=== PATIENT | female | born 1950 | race Caucasian/White ===

== ENCOUNTER 2022-06-23 17:12 | Emergency (ER) | payer MEDICARE, BC, SELFPAY ==
[2022-06-23 17:37] VITALS: BP 114/79; PULSE 78; RESP 14; TEMP 36.8; O2SAT 98
--- NOTE | 2022-06-23 17:40 | CRLHL7_ITS ---
For Patients: As a result of the Cures Act, medical imaging exams and procedure reports are released immediately into your electronic medical record. You may view this report before your referring provider. If you have questions, please contact your health care provider. Indication: Contusion Technique: Two views of the left forearm Comparison: None Findings: Bones: Alignment is normal. No fractures or bone lesions. Joint spaces: Unremarkable. Soft tissues: Soft tissue swelling along the anterior aspect of the distal left forearm. Impression: Soft tissue swelling along the anterior aspect of the distal forearm. Dictated by Shelby Madrigal MD @ 06/23/2022 9:09:19 PM (Electronically Signed)
--- NOTE | 2022-06-23 17:41 | ED.UPPEXIN ---
HPI - Extremity Injury (Upper) General Chief Complaint: Extremity Pain/Injury, Upper Stated Complaint: LEFT ARM INJURY - SIGNIFICANT SWELLING Time Seen by Provider: 06/23/22 17:29 History of Present Illness HPI narrative: This 72-year-old female comes in with an injury to her left forearm. She states she was carrying a box who is corner or bumped into the volar aspect of her left forearm. She has a large hematoma in this area. She states that she is on Eliquis for atrial fibrillation. She has normal range of motion of her fingers and wrist joint. Related Data Home Medications Medication Instructions Recorded Confirmed apixaban 5 mg tablet (Eliquis) mg 06/23/22 clonazepam 1 mg tablet mg 06/23/22 ezetimibe 10 mg tablet mg 06/23/22 gabapentin 300 mg capsule mg 06/23/22 metoprolol succinate 25 mg mg PO 06/23/22 tablet,extended release 24 hr venlafaxine 150 mg mg PO 06/23/22 capsule,extended release 24 hr Allergies Allergy/AdvReac Type Severity Reaction Status Date / Time Penicillins Allergy Mild Rash Verified 06/23/22 17:45 doxycycline AdvReac Intermediate Muscle Pain Verified 06/23/22 17:45 sulfas Allergy Unknown Uncoded 06/23/22 17:45 anti-inflammatories AdvReac Mild Muscle Pain Uncoded 06/23/22 17:45 Review of Systems Status of ROS: Reports: 10 or more systems reviewed and unremarkable except as noted in History and below Narrative: Constitutional: No fevers, no weight gain or loss. Eyes: No discharge. No vision changes. HENT: No congestion, no sore throat, no ear pain. Cardiovascular: No chest pain, no palpitations. Respiratory: No shortness of breath, no wheezes, no cough. Gastrointestinal: No abdominal pain, no vomiting, no diarrhea. Genitourinary: No dysuria, no hematuria. Musculoskeletal: Normal range of motion. Large hematoma on the volar aspect of the left distal forearm. Skin: No rashes, no pruritis. Neurological: No dizziness, weakness, sensory change, speech change. Endo/Heme/Allergies: No bruising or bleeding. No polydipsia. Pysch: no suicidality, no anxiety, no insomnia. All other systems reviewed and are negative. [facility] Medical History (Updated 06/23/22 @ 17:48 by Maria D Villegas RN) Atrial fibrillation Depression Hyperlipidemia Restless leg syndrome Surgical History (Updated 06/23/22 @ 17:47 by Maria D Villegas RN) History of cataract surgery History of cholecystectomy History of hysterectomy History of knee replacement Social History Smoking Status: Current every day smoker What tobacco products do you use: cigarettes Do you use any of these nicotine containing products: None Second hand tobacco smoke exposure: Yes How often do you have a drink containing alcohol: monthly or less How many standard drinks containing alcohol do you have on a typical day: 1 or 2 How often do you have six or more drinks on one occasion: Never AUDIT-C Alcohol total score: 1 Non-prescribed substance use: denies use Exam Narrative: Exam Narrative: Constitutional: Well-developed, well-nourished, no acute distress. HEENT: Normocephalic, atraumatic. Neck: Normal range of motion. Nontender. Supple. Heart: Intact distal pulses. Lungs: No chest discomfort. No wheezes, rhonchi, or rales. Abdomen: Nontender. Back: Normal range of motion. Extremities: Normal range of motion. Large hematoma on the volar aspect of the left wrist in the distal portion. Range of motion of the wrist is intact. Skin: Intact. No rash. Warm. No erythema or pallor. Neurologic: No altered sensation. No weakness. Alert and oriented. Psychiatric: No suicidality. No anxiety or depression. No insomnia. Nursing notes and vitals signs are reviewed. Const: Vital Signs, click to edit/add: Vital Signs - 24 hr 06/23/22 17:37 Temperature 98.2 F Pulse Rate [Pulse Oximeter] 78 Respiratory Rate 14 Blood Pressure [Ri ght Upper Arm] 114/79 Pulse Oximetry 98 Course Vital Signs Vital signs: Initial Vital Signs Temperature 98.2 F 06/23/22 17:37 Temperature Source Temporal Artery Scan 06/23/22 17:37 Pulse Rate 78 06/23/22 17:37 Respiratory Rate 14 06/23/22 17:37 Blood Pressure 114/79 06/23/22 17:37 Blood Pressure Mean 90 06/23/22 17:37 Pulse Oximetry 98 06/23/22 17:37 Vital Signs Temperature 98.2 F 06/23/22 17:37 Pulse Rate 78 06/23/22 17:37 Respiratory Rate 14 06/23/22 17:37 Blood Pressure 114/79 06/23/22 17:37 Pulse Oximetry 98 06/23/22 17:37 Temperature 98.2 F 06/23/22 17:37 Pulse Rate 78 06/23/22 17:37 Respiratory Rate 14 06/23/22 17:37 Blood Pressure 114/79 06/23/22 17:37 Pulse Oximetry 98 06/23/22 17:37 MDM - Extremity Injury (Upper) MDM Narrative Medical decision making narrative: This patient comes in with the injury to her left forearm as described above. She is on Eliquis for atrial fibrillation and comes in with an injury to her forearm that resulted in a rather large hematoma. Some ice was applied and it appears that the hematoma is no longer advancing. X-ray images of the left forearm were obtained. There is no sign of bony injury. After ice was applied a Thierno wrap was applied with some compression. The hematoma seems to have stopped advancing. Imaging Data XR L Forearm: My impression: No sign of bony injury. Hematoma is observable. Discharge Plan Discharge Clinical Impression: Contusion of forearm, left Patient Disposition: Home, Self-Care Condition: Stable Instructions: Contusion in Adults (ED) Additional Instructions: Continue medications as prescribed. Wear Thierno wrap for compression. Activity as tolerated. Follow up with MD or return if worsening. Prescriptions: No Action clonazepam 1 mg tablet Label Comments: TAKE 1 TO 1 AND 1/2 TABLETS BY MOUTH AT BEDTIME NEEDED FOR ANXIETY venlafaxine 150 mg capsule,extended release 24hr PO gabapentin 300 mg capsule Label Comments: TAKE 1 CAPSULE BY MOUTH EVERY AFTERNOON AND 3 CAPSULES BY MOUTH EVERY EVENING metoprolol succinate 25 mg tablet extended release 24 hr PO ezetimibe 10 mg tablet Label Comments: TAKE 1 TABLET BY MOUTH DAILY Eliquis 5 mg tablet Stand Alone Forms: My[facility] Info Instructions
--- NOTE | 2022-06-23 18:30 | ED.NURSE ---
Thierno wrapped placed around swelling in left forearm.
== END 2022-06-23 19:28 | disposition home or self-care (01) ==
PROVIDERS: Emergency Provider Emergency Medicine Emergency Medical Services
DX: S50.12XA Contusion of left forearm, initial encounter (principal); W22.8XXA Striking against or struck by other objects, initial encounter
CPT/HCPCS: 73090; 99283; 99284

== ENCOUNTER 2023-04-20 12:58 | Outpatient (CLI) | payer MEDICARE, BC, SELFPAY ==
[2023-04-20 17:06] LABS: Digoxin* 0.9 ng/mL (0.8-2.0)
== END 2023-04-20 12:59 | disposition home or self-care (01) ==
PROVIDERS: PCP Family Medicine
DX: R60.9 Edema, unspecified (principal); I48.0 Paroxysmal atrial fibrillation; I51.7 Cardiomegaly
CPT/HCPCS: 36415; 80162; 93225; 93226; 93306

== ENCOUNTER 2023-09-28 15:21 | Outpatient (CLI) | payer MEDICARE, BC, SELFPAY | END 2023-09-28 15:22 | disposition home or self-care (01) | LOC: RAD 15:23 | PROVIDERS: PCP Family Medicine; Visit Provider Family Medicine | DX: I48.91 Unspecified atrial fibrillation (principal) | CPT/HCPCS: 93225; 93226 ==

== ENCOUNTER 2025-07-24 19:51 | Emergency (ER) | payer MEDICARE, BC, SELFPAY ==
--- OUTSIDE RECORDS SUMMARY | 2025-07-24 19:54 | XMS_ITS | Encounter Summary ---
Author Organization [facility] Address [address], [place] [address] Care Team Providers Care Soft Mud Molder Name Role Phone Gabbie Cuevas MD Primary Care Provider [phone] Encounter Details Date Type Department Care Team (Late st Contact Info) Description 07/08/2013 Consent for Procedure/Treatme nt [facility] INFORMED CONSENT FOR SLEEP/AUDIO/VIDEO Social History Tobacco Use Types Packs/Day Years Used Date Smoking Tobacco: Every Day Cigarettes 1 26 Started: 08/07/1983; Last attempted to quit: 08/07/2009 Smokeless Tobacco: Never Alcohol Use Standard Drinks/Week Comments Yes 0 (1 standard drink = 0.6 oz pur e alcohol) rare Comments No Sex and Gender Information Value Date Recorded Sex Assigned at Not on file Legal Sex Female 4:27 AM CDT Gender Identity Not on file Sexual Orientation Not on file 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
--- OUTSIDE RECORDS SUMMARY | 2025-07-24 19:54 | XMS_ITS | Encounter Summary ---
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
--- OUTSIDE RECORDS SUMMARY | 2025-07-24 19:54 | XMS_ITS | Encounter Summary ---
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
--- OUTSIDE RECORDS SUMMARY | 2025-07-24 19:54 | XMS_ITS | Encounter Summary ---
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
--- OUTSIDE RECORDS SUMMARY | 2025-07-24 19:54 | XMS_ITS | Encounter Summary ---
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
--- OUTSIDE RECORDS SUMMARY | 2025-07-24 19:54 | XMS_ITS | Encounter Summary ---
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
--- OUTSIDE RECORDS SUMMARY | 2025-07-24 19:54 | XMS_ITS | Encounter Summary ---
Author Organization [facility] Address [address], [place] [address] Care Team Providers Care Principal Programmer Name Role Phone Gabbie Cuevas MD Primary Care Provider [phone] Encounter Details Date Type Department Care Team (Late st Contact Info) Description 09/20/2013 Correspondence TMD at [facility] [address] 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
--- OUTSIDE RECORDS SUMMARY | 2025-07-24 19:54 | XMS_ITS | Encounter Summary ---
Author Organization [facility] Address [address], [place] [address] Care Team Providers Care Terrazzo Polisher Name Role Phone Gabbie Cuevas MD Primary Care Provider [phone] Reason for Visit * Reason Comments Refill clonazePAM (KLONOPIN ) 1 MG tablet [Pharmacy Med Name: CLONAZEPAM 1MG TABLETS] Encounter Details Date Type Department Care Team (Late st Contact Info) Description 06/10/2025 Refill [facility] [address] [place] [id number] Reva Hare MD [address] [place] [id number] Refill (clonazePAM (KLONOPIN) 1 MG tablet [Pharmacy Med Name: CLONAZEPAM 1MG TABLETS]) Social History Tobacco Use Types Packs/Day Years Used Date Smoking Tobacco: Every Day Cigarettes 1 53.1 Started: 06/07/1972 Passive Smoke Exposure: Current Smokeless Tobacco: Never Alcohol Use Standard Drinks/Week Comments Yes 0 (1 standard drink = 0.6 oz pur e alcohol) A few drinks a year PHQ-2 Answer Date Recorded PHQ-2 Score 0 03/22/2025 Comments No Sex and Gender Information Value Date Recorded Sex Assigned at Not on file Legal Sex Female 4:27 AM CDT Gender Identity Not on file Sexual Orientation Not on file Occupation Industry Job Start Date Job End Date Not on file Not on file Not on file Not on file documented as of this encounter Nursing Notes * Reva Hare MD - 06/10/2025 3:00 PM CDT Sending to pcp to address tomorrow-ok to wait. * Mega Giles [employer] - 06/10/2025 2:47 PM CDT clonazePAM (KLONOPIN) 1 MG tablet [Pharmacy Med Name: CLONAZEPAM 1MG TABLETS] Medication started: 08/21/2019 Last ordered by REVA HARE: 02/27/2025 (103 days ago) QTY: 120, Refills: 0, Sig: take 1-1.5 tablets (1-1.5 mg) by mouth at bedtime as needed for anxiety. (changed) -> Unable to determine if sig has changed, review required. -> Medication cannot be delegated. -> A qualifying visit was not found within the last 2 years. Last qualifying visit: None (A recent visit (in Family Practice with GABBIE CUEVAS) was found) Next scheduled visit: None [facility] [employer] [facility] Embedded Refills, Reference: [id number], 06/10/2025 2:47:49 PM CDT, Pool: Refill Centralized Services - Primary Care ([id number]) * Mega Giles - 06/10/2025 2:47 PM CDT No Careplan note found by [email or web address] documented in this encounter Plan of Treatment Not on file documented as of this encounter Visit Diagnoses Diagnosis Periodic limb movement disorder documented in this encounter Care Teams Terrazzo Polisher Relationship Specialty Start Date End Date Gabbie Cuevas MD [address] [place] [address] PCP - General Family Practice 05/02/18 documented as of this encounter
--- OUTSIDE RECORDS SUMMARY | 2025-07-24 19:54 | XMS_ITS | Encounter Summary ---
Author Organization [employer] Address [address], [place] [address] Care Team Providers Care Nursing Scheduler Name Role Phone Gabbie Cuevas MD Primary Care Provider [phone] Encounter Details Date Type Department Care Team (Late st Contact Info) Description 06/19/2012 Correspondence None Inactive, Provider DENIAL FOR PAYMENT Social History Tobacco Use Types Packs/Day Years Used Date Smoking Tobacco: Former Cigarettes 0.5 26 1 - 08/07/2009 Smokeless Tobacco: Never Comments:trying to quit agai n Alcohol Use Standard Drinks/Week Comments Yes 0 (1 standard drink = 0.6 oz pur e alcohol) rarely Comments No Sex and Gender Information Value Date Recorded Sex Assigned at Not on file Legal Sex Female 4:27 AM CDT Gender Identity Not on file Sexual Orientation Not on file 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
--- OUTSIDE RECORDS SUMMARY | 2025-07-24 19:54 | XMS_ITS | Encounter Summary ---
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
--- OUTSIDE RECORDS SUMMARY | 2025-07-24 19:54 | XMS_ITS | Encounter Summary ---
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
--- OUTSIDE RECORDS SUMMARY | 2025-07-24 19:55 | XMS_ITS | Encounter Summary ---
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
--- OUTSIDE RECORDS SUMMARY | 2025-07-24 19:55 | XMS_ITS | Clinical Summary ---
Author Organization [facility] Address [address], [place] [address] Care Team Providers Care It Auditor Name Role Phone Gabbie Cuevas MD Primary Care Provider [phone] Source Comments You are receiving this document as you are listed as the primary care provider,follow-up provider, or the patient has been referred to you for consultation.This is in compliance with the Medicare and[facility] Incent[facility],which states Providers who transition their patient to another setting of careor provider of care or refers their patient to another provider of care shouldprovide summary care record for each transition of care or referral. [facility] Allergies Active Allergy Reactions Criticality Noted Date Comments Varenicline Rash 08/09/2008 Ciprofloxacin Other, see comments 06/05/2016 Trouble with tendons Doxycycline Rash,Anaphylaxis High 07/18/2014 trouble breathing, Food Other, see comments 04/24/2013 Walnuts, throat itches and starts to close up Latex Rash 07/18/2014 PN: itching and sweaty hands, rash Meperidine Muscle Aches/Weakness 07/18/2014 PN: opposite effect, increase pain. Some psychologic effects, anxiety Meperidine And Related 10/10/2003 causes pain Metronidazole Rash Medium 02/26/2003 SOB Metronidazole Rash 07/18/2014 Nitrofurantoin Monohydrate Macrocrystals Itching 03/27/2008 Nsaids 07/18/2014 PN: flares fibromyalgia Other Unknown Low 03/22/2025 Pt reacting was sneezing to aloe - hand clinical sales consultant Oxycodone Other, see comments 05/28/2013 Made pain worse Penicillin V Rash 11/18/2004 Penicillins Rash 07/18/2014 Quinine 07/18/2014 PN: unsure reaction, pretty severe Quinine Derivatives Breathing Difficulty Medium 02/26/2003 Almost paralyzed. Called the poison control line d/t fear. Rosuvastatin Myalgias 10/11/2019 Myalgia Sulfa Antibiotics Rash Medium 07/18/2014 SOB, PN: unsure reaction, knows she can't take them Thimerosal Swelling 06/29/2005 Thimerosal (Thiomersal) 07/18/2014 PN: severe reaction in eyes from contact solution with thimerosal Medications acetaminophen (TYLENOL) 500 MG tablet Take 2 Tablets (1,000 mg) by mouth daily at bedtime. 5 Active ascorbic acid (AKA VITAMIN C) 1000 MG tablet Take 1 Tablet (1,000 mg) by mouth daily. 6 Active Vitamin D, Cholecalciferol, 1000 UNITS CAPS 1,000 Units. A ctive Magnesium Citrate 200 MG TABS Take 2 Tablets by mouth daily. 1 Active Chromium Picolinate 200 MCG Take 1 Tablet (200 mcg) by mouth daily. 3 Active nitroglycerin (NITROSTAT) 0.4 MG sublingual tablet One tablet under tongue every 5 minutes as needed for chest pain 25 Tablet 11 3 Active Lysine 1000 MG Uncertain of dose she's taking 3 Active mupirocin (BACTROBAN) 2 % ointment Apply to inside of left ear canal twice daily for 10 days. 15 g 3 Active fluocinolone (DERMOTIC) ear drop oil 5 drops each ear, as needed for itching 20 mL 3 4 Active gabapentin (NEURONTIN) 300 MG capsuleIndicatio ns:Anxiety (HRC),Fibromyalg ia TAKE 1 CAPSULE BY MOUTH IN THE AFTERNOON AND 3 CAPSULES EVERY EVENING 360 Capsule 3 4 Active Additional Information Patient taking differently: TAKE 1 CAPSULE BY MOUTH IN THE AFTERNOON AND 2 CAPSULES EVERY EVENING, Reported on 03/22/2025 apixaban (ELIQUIS) 5 MG tabletIndication s:Paroxysmal atrial fibrillation (HRC) Take 1 Tablet (5 mg) by mouth two times a day. 180 Tablet 3 4 Active digoxin (LANOXIN) 125 MCG tabletIndication s:Paroxysmal atrial fibrillation (HRC) Take 1 Tablet (125 mcg) by mouth daily. 90 Tablet 3 4 Active ezetimibe (ZETIA) 10 MG tabletIndication s:Hypercholester olemia Take 1 Tablet (10 mg) by mouth daily. 90 Tablet 3 4 Active venlafaxine (EFFEXORXR) 75 MG 24 hour release capsuleIndicatio ns:Anxiety (HRC),Depression , major, recurrent, mild (HRC) Take 1 Capsule (75 mg) by mouth daily. In addition to 150 mg capsule daily for total of 225 mg daily 90 Capsule 3 4 Active venlafaxine (EFFEXORXR) 150 MG 24 hour release capsuleIndicatio ns:Anxiety (HRC),Depression , major, recurrent, mild (HRC) Take 1 Capsule (150 mg) by mouth daily. With a 75 mg capsule for total of 225 mg daily 90 Capsule 3 4 Active primidone (MYSOLINE) 50 MG tabletIndication s:Essential Tremor Take 1 Tablet (50 mg) by mouth three times a day. 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 Hypercholesterolemia 11/09/2018 Fibromyalgia 11/03/2018 Anxiety 01/09/2018 Overview (02/28/2025): Uses clonazepam at times for sleep, 120 tablets every three to four months is fine, have low concern for abuse Abnormal cervical Papanicolaou smear 07/05/2017 Overview (07/07/2023): Plan, per consult with Dr. Rosario: repeat cytology only in 12 months (05/2018) From visit on 10/13/18 with : History of abnormal pap tests? Judith Ramírez is a 68 y.o. female P0030 who presents to clinic today for a pap smear. She has a history of GRADY exposure in utero and has been advised to have annual pap smears. She has had a TSH/BSO in 1995 for fibroids and endometriosis. Plan: Pap of vaginal cuff done today and will repeat annually. HPV testing not indicated. 2002,2004,2005 NILM 2006 ASCUS; HPV positive 2006,2007,2008,2010 NILM 2012 LSIL; HPV negative 2017: ASCUS HPV- 2018 ASCUS; Vaginal specimen; no glandular component present. HPV not ordered [address] TO REPEAT PAP 1 YEAR 2020: NILM 2022 ASCUS, neg HPV Plan: Upon review of the literature, screening should continue past 65 until there are 3 or more normal pap smears after 10 years. Given ASCUS/HPV negative, I would recommend a repeat pap in 1 year. Bianca Salcedo MD Pap only 05/2024 Pt has Hx GRADY exposure GRADY exposure in utero 11/15/2014 Colon adenoma 09/12/2014 Overview (09/11/2023): Next colonoscopy 08/2024 with [facility] as large rectal adenoma in 08/2023 requiring colorectal consult Next colonoscopy 12/2024 c [facility], no record on file. Scheduled colonoscopy 12-17-14 with [facility] due to difficult exams. Microhematuria 09/12/2014 Overview (06/03/2016): Intermittent <10/hpf Tobacco abuse 07/24/2014 Depression, major, recurrent, mild 07/24/2014 Overview (06/03/2016): initially moderate TROY (obstructive sleep apnea) 07/30/2013 PCO (posterior capsular opacification), left PVD (posterior vitreous detachment) 09/25/2012 Vitamin D deficiency 10/27/2011 Screening for malignant neoplasm of cervix 06/09 Overview (07/31/2015): Epic Periodic limb movement disorder 12/31/2004 Overview (10/08/2017): CLONAZEPAM 1 mg HS /Restless Leg Syndrome Resolved Problems Problem Noted Date Diagnosed Date Resolved Date CAREPLAN: ANTI-COAGULATION 11/06/2019 0 11/10/2021 Overview (11/10/2021): Per 11/05/21 OV switching to Apixaban/Eliquis. Martina Angela RN/[facility] 11/10/2021 11:08 AM CHADSVASC Score=2 Sunil Garcia RN/[facility] 11/10/2021 Anticoagulation Careplan for Judith Ramírez Diagnoses: Atrial Fib. Therapeutic range: 2 - 3. Warfarin pill strength: 2mg. Initiation date ( AKA date when started on warfarin ): 11/06/2019. Length of treatment: short-term. Comments: transitioning from Eliquis Shelby El RN Restless leg syndrome 07/24/20142016 Hallux valgus, acquired 10/02/201307/2017 Overview (07/31/2015): Epic Pes cavus 10/02/2013 10/08/2017 Acquired hallux valgus 10/02/201312/05 Fibroadenoma 08/15/2008 12/05/2016 Overview (06/22/2017): dx on biopsy 2006 ; L breast fibroadenoma Incomplete bladder emptying 04/09/2008 05/18/2012 Obsessive-compulsive disorder 12/15/2007 06/09/2023 Cervical cancer screening 06/09/2006 Posterior subcapsular polar senile cataract 11/10/2005 03/03/2010 Overview (06/22/2017): POST SUBCAP SENILE CATAR OS Lens replaced 10/15/2005 10/08/2017 Overview (06/22/2017): PSEUDOPHAKIA OD (10/14/05) OS 2/10 Posterior subcapsular polar senile cataract 07/20/2005 10/15/2005 Overview (06/22/2017): POST SUBCAP SENILE CATARACT OD Sleep apnea 06/08/2005 07/30/2013 Overview (06/22/2017): Other and unspecified sleep apnea Personal history of tobacco use, presenting hazards to health 12/31/2004 12/05/2016 Major depressive disorder, r ecurrent episode, moderate 03/28/2003 10/08/2017 Overview (06/22/2017): MAJOR DEPRESSIVE D/O, RECURR, MODERATE(aka DEPRESSION) Tobacco use disorder 08/30/2002 023 Encounters Date Type Department Care Team Description 06/10/[address] [address] Arlen Hare MD Refill (clonazePAM (KLONOPIN) 1 MG tablet [Pharmacy Med Name: CLONAZEPAM 1MG TABLETS]) from Last 3 Months Immunizations Immunization Administration Dates Next Due Flu Vac Preserv Free (3+yrs) 07/21/2009 Fluzone Qiv Multidose Vial 0 .25 (6-35 Mos) 08/27/2013 Influenza IIV3 (Trivalent) F luzone Highdose, 65+ Yrs (05052) 11/09/2019 Influenza IIV4 (Quadrivalent ) 0.5mL (86725) 07/18/2014,08/27/2013 Influenza IIV4 (Quadrivalent ) Fluad, 65+ Yrs 08/18/2023 PCV13 (Prevnar) 11/03/2018 PPSV23 (Pneumovax) 11/09/2019,04/24/2010 TDAP (BOOSTRIX) 05/11/2012 Td 03/17/2005,10/30/1995,03/03/1993 Tdap 05/18/2012 Varicella 01/25/2000(Deferred: Immune by Disease),10/31/1999 Family History Medical History Relation Name Comments Cataract Father Jason Ramírez Dementia Father Jason Ramírez lewey Body disease Diabetes Father Jason Ramírez Diabetes, Type II Father Jason Ramírez Other Father Jason Ramírez cardiac arr hythmia Stroke Father Jason Ramírez also had le wy body disease Cataract Mother Diya Ramírez Glaucoma Mother Diya Ramírez Hearing Loss Mother Diya Ramírez Heart Disease Mother Diya Ramírez Congesti ve Heart Failure Neuropathy Mother Diya Ramírez Osteoporosis Mother Diya Ramírez possible Other Mother Diya Ramírez congestiv e heart failure myopathy Mother Diya Ramírez unclear t ype but wheelchair bound for many years Arrhythmia Brother 1 Pat Atrial Fib Brother 1 Pat Neuropathy Brother 1 Pat myopathy Brother 1 Pat severe, gradual ly worsening, difficulty walking Atrial Fib Brother 2 Jayden pancreatitis Brother 3 possibly relate d to chantix Cancer, Breast Cousin 50's Cancer, Breast Paternal Aunt 70's Amblyopia/Strabismus Sister 1 Selena Jairon Cataract Sister 1 Selena Jairon Macular Degeneration Sister 1 Selena Ossian Thyroid Disorder Sister 1 Selena Ossian myopathy Sister 2 Jackie polymyalgia rheumatica Sister 2 Jackie Cancer, Endometrial Negative Family History Cancer, Ovary Negative Family History Retinal Detachment Negative Family History Relation Name Status Comments Father Jason Ramírez (Age 76) Mother Diya Ramírez Alive b 1927 Brother 1 Pat Alive Brother 2 Jayden Alive Brother 3 Cousin Maternal Grandfather Maternal Grandmother Paternal Aunt Paternal Grandfather Paternal Grandmother Sister 1 Selena Jairon Alive Sister 2 Jackie Alive Social History Tobacco Use Types Packs/Day Years Used Date Smoking Tobacco: Every Day Cigarettes 1 53.1 Started: 06/07/1972 Passive Smoke Exposure: Current Smokeless Tobacco: Never Tobacco Cessation:Ready to Q uit: Not Asked; Counseling Given: Not Answered Alcohol Use Standard Drinks/Week Comments Yes 0 [...] file Not on file Not on file Last Filed Vital Signs Vital Sign Reading Time Taken Comments Blood Pressure 118/72 03/22/2025 2:19 PM CDT Pulse 57 03/22/2025 2:19 PM CDT Temperature 36.3 C (97.3 F) 03/22/2025 2:19 PM CDT Respiratory Rate 16 11/21/2023 7:15 PM STONEWORKER Oxygen Saturation 98% 11/21/2023 7:15 PM STONEWORKER Inhaled Oxygen Concentration - - Weight 61.5 kg (135 lb 9.6 oz) 03/22/2025 2:19 P M CDT Height 172.7 cm (5' 8) 03/22/2025 2:19 PM CDT Body Mass Index 20.62 03/22/2025 2:19 PM CDT Plan of Treatment Health Maintenance Due Date Last Done Comments Pneumococcal PCV20 Immunization Discussion 1950 Zoster/Shingles Vaccine (1 of 2) 2001 Lung Cancer Screening 12/25/2021 12/25/2020, 019 DTaP/Tdap/Td Vaccine (3 - Tdap) 05/18/2022 05/18/2012, 05/11/2012, 03/17/2005, Additional history exists Mammogram 03/08/2024 03/08/2023, 12/01, 11/12/2020, Additional history exists Cervical Cancer Screening 06/09/20242022, 06/09/2023, 11/12/2020, Additional history exists COVID-19 Vaccine ( season) 2025 Influenza Vaccine (#1) 2025 , 11/09/2019, 07/18/2014, Additional history exists Prediabetes: HGBA1C 07/12/2025 07/12/2024, 03/08/2023, 11/05/2021, Additional history exists Medicare Annual Wellness Visit 03/22/2026 03/22/2025, 08/18/2023, 04/22/2022, Additional history exists RSV Vaccine (1 - 1-dose 75+ series) 2026 Cholesterol 03/08/2028 03/08/2023, 03/2022, 12/25/2020, Additional history exists Colonoscopy 09/01/2028 09/01/2023, 03/2020 (Completed), 12/17/2014, Additional history exists Hep C Screening (Preventive Services) Completed 11/03/2018 Dexa Completed 01/30/2019, 06/02, 06/29/2007, Additional history exists Pneumococcal Vaccine 50+ Yrs Completed 07/2020, 11/03/2018, 04/24/2010, Additional history exists HepA Vaccine Aged Out No longer eligi ble based on patient's age to complete this topic HepB Vaccine Aged Out No longer eligi ble based on patient's age to complete this topic Hib Vaccine Aged Out No longer eligi ble based on patient's age to complete this topic MCV4 Vaccine Aged Out No longer eligi ble based on patient's age to complete this topic Meningococcal B Vaccine Aged Out No l onger eligible based on patient's age to complete this topic Medical Devices Implanted Type Area Snack Bar Cashier Device Identifier Shelf Expiration Date Model / Serial / Lot Patch Ventralex Sm [place] - [id number] Implanted:Qty: 1 on 04/24/2013 by Steve Batista MD at [facility] DEVICE N/A: ABDOMEN C R Bard 05/31/2014 [id number] / [id number] / [id number] Procedures Procedure Name Priority Date/Time Associated Diagnosis Comments HGB A1C Routine 07/12/2024 3:47 PM CDT Pre-diabetes ENDOSCOPY, COLON, SCREENING/DIAGNOST IC Routine 09/01/2023 3:30 PM CDT Special screening for malignant neoplasms, colon HPV WITH 16 18 GENOTYPING, CERVICAL/ENDOCERVI PRAFUL Routine 06/09/2023 4:15 PM CDT Special screening examination for human papillomavirus (HPV) LIPID PANEL & DIRECT LDL (IF NEEDED) Routine 03/08/2023 4:11 PM CDT Medication refill MM MAMMOGRAM SCREENING BILAT W 3D CAPO W CAD Routine 03/08/2023 1:[address] CHEST WO IV CONT LUNG SCREENING Routine 12/25/2020 1:53 PM STONEWORKER Cigarette smoker DXA BONE DENSITY SPINE/HIP Routine 01/30/2019 1:22 PM CDT Screening for osteoporosis HEPATITIS C ANTIBODY, WITH REFLEX (ANTI-HCV) Routine 11/03/2018 1:56 PM STONEWORKER Encounter for Medicare annual wellness exam from Last 3 Months or Most Recently Relevant to Health Maintenance Results * (ABNORMAL) Hgb A1C (07/12/2024 3:47 PM CDT) Hemoglobin A1C 5.9(H) <=5.6 % 07/12/2024 7:54 PM CDT [facility] Estimated Average Glucose (Calc) 123 < 117 mg/dL 07/12/2024 7:54 PM CDT [facility] Comment:Estimated average gl ucose (eAG) converts A1c into glucose units (mg/dL) and estimates average glucose over the past approximately 3 months. The eAG reference interval (<117 mg/dL) corresponds to an A1c of <5.7%. Blood Venipuncture / Unknown 07/12/2024 3:47 PM CDT 07/12/2024 3:48 PM CDT Narrative [facility] - 07/12/2024 7:54 PM CDT For patients not previously diagnosed with diabetes: 5.7-6.4%: Increased risk for diabetes 6.5% and greater: Diagnostic for diabetes For patients diagnosed with diabetes: <8.0%: Goal of therapy for ages 18-75 Clinicians may recommend a higher or lower goal for specific individuals. us Gabbie Cuevas MD LAB_1 Final Resul t [facility] [address] [address] * Endoscopy, colon, diagnostic (09/01/2023 3:30 PM CDT) Anatomical Region Laterality Modality Other 09/01/2023 3:30 PM CDT Narrative 09/01/2023 3:30 PM CDT Patient Name: Judith Ramírez Procedure Date: 09/01/2023 3:30 PM Date of : 1950 Admit Type: Outpatient Age: 73 Gender: Female Note Status: Finalized Attending MD: Rui Mccormick MD, Procedure: Colonoscopy Indications: High risk colon cancer surveillance: Personal history of colonic polyps, Last colonoscopy: December 2019 Providers: Rui Mccormick MD, Laura Sanchez RN Referring MD: Ava Tucker MD Medicines: Propofol per Anesthesia Complications: No immediate complications. Estimated blood loss: Minimal. Procedure: After I obtained informed consent, the scope was passed under direct vision. Throughout the procedure, the patient's blood pressure, pulse, and oxygen saturations were monitored continuously. The [id number] was introduced through the anus and advanced to the cecum, identified by appendiceal orifice and ileocecal valve. The colonoscopy was performed without difficulty. The patient tolerated the procedure well. The quality of the bowel preparation was good. The appendiceal orifice was photographed. Findings: The perianal and digital rectal examinations were normal. A 4 mm polyp was found in the ascending colon. The polyp was sessile. The polyp was removed with a cold snare. Resection and retrieval were complete. A 5 mm polyp was found in the distal rectum. The polyp was sessile. Biopsies were taken with a cold forceps for histology. Estimated blood loss was minimal. A diffuse area of moderately nodular mucosa was found in the distal rectum. Biopsies were taken with a cold forceps for histology. Estimated blood loss was minimal. Impression: - One 4 mm polyp in the ascending colon, removed with a cold snare. Resected and retrieved. - One 5 mm polyp in the distal rectum. Biopsied. - Nodular mucosa in the distal rectum. Biopsied. Recommendation: - Await pathology results. Procedure Code(s): --- Professional --- 66716, Colonoscopy, flexible; with removal of tumor(s), polyp(s), or other lesion(s) by snare technique 05036, 59, Colonoscopy, flexible; with biopsy, single or multiple Diagnosis Code(s): --- Professional --- Z86.010, Personal history of colonic polyps D12.2, Benign neoplasm of ascending colon D12.8, Benign neoplasm of rectum K62.89, Other specified diseases of anus and rectum CPT copyright 2021 [employer]. All rights reserved. The codes documented in this report are preliminary and upon sectional belt mold assembler review may be revised to meet current compliance requirements. Rui Mccormick MD 09/01/2023 4:35:52 PM This document has been electronically signed. Number of Addenda: 0 Note Initiated On: 09/01/2023 3:30 PM Endoscopy Report Procedure Note Rui Mccormick MD - 09/01/2023 Patient Name: Judith Ramírez Procedure Date: 09/01/2023 3:30 PM Date of : 1950 Admit Type: Outpatient Age: 73 Gender: Female Note Status: Finalized Attending MD: Rui Mccormick MD, Procedure: Colonoscopy Indications: High risk colon cancer surveillance: Personal history of colonic polyps, Last colonoscopy: December 2019 Providers: Rui Mccormick MD, Laura Sanchez RN Referring MD: Ava Tucker MD Medicines: Propofol per Anesthesia Complications: No immediate complications. Estimated blood loss: Minimal. Procedure: After I obtained informed consent, the scope was passed under direct vision. Throughout the procedure, the patient's blood pressure, pulse, and oxygen saturations were monitored continuously. The [id number] was introduced through the anus and advanced to the cecum, identified by appendiceal orifice and ileocecal valve. The colonoscopy was performed without difficulty. The patient tolerated the procedure well. The quality of the bowel preparation was good. The appendiceal orifice was photographed. Findings: The perianal and digital rectal examinations were normal. A 4 mm polyp was found in the ascending colon. The polyp was sessile. The polyp was removed with a cold snare. Resection and retrieval were complete. A 5 mm polyp was found in the distal rectum. The polyp was sessile. Biopsies were taken with a cold forceps for histology. Estimated blood loss was minimal. A diffuse area of moderately nodular mucosa was found in the distal rectum. Biopsies were taken with a cold forceps for histology. Estimated blood loss was minimal. Impression: - One 4 mm polyp in the ascending colon, removed with a cold snare. Resected and retrieved. - One 5 mm polyp in the distal rectum. Biopsied. - Nodular mucosa in the distal rectum. Biopsied. Recommendation: - Await pathology results. Procedure Code(s): --- Professional --- 76800, Colonoscopy, flexible; with removal of tumor(s), polyp(s), or other lesion(s) by snare technique 78325, 59, Colonoscopy, flexible; with biopsy, single or multiple Diagnosis Code(s): --- Professional --- Z86.010, Personal history of colonic polyps D12.2, Benign neoplasm of ascending colon D12.8, Benign neoplasm of rectum K62.89, Other specified diseases of anus and rectum CPT copyright 2021 [employer]. All rights reserved. The codes documented in this report are preliminary and upon sectional belt mold assembler review may be revised to meet current compliance requirements. Rui Mccormick MD 09/01/2023 4:35:52 PM This document has been electronically signed. Number of Addenda: 0 Note Initiated On: 09/01/2023 3:30 PM Endoscopy Report Gabbie Cuevas MD [facility] PROCEDURE ORDERABLES Final Result * HPV with 16 18 Genotyping (06/09/2023 4:15 PM CDT) HPV High Risk Type 16 PCR Not Detected Not detected 06/23/2023 11:26 AM [facility] HPV High Risk Type 18 PCR Not Detected Not Detected 06/23/2023 11:26 AM [facility] HPV High Risk Other Than 16/18 Not Detected Not detected 06/23/2023 11:26 AM [facility] Cervical Broom ENTIRE ENDOCERVIX / Unknown 06/09/2023 4:15 PM CDT 06/09/2023 5:03 PM CDT [facility] - 06/23/2023 11:26 AM CDT The [facility] HPV test is a qualitative in vitro test for the detection of Human Papillomavirus in [facility] patient specimens. The test utilizes amplification of target DNA by Polymerase Chain Reaction (PCR) and nucleic acid hybridization for the detection of 14 high-risk (HR) HPV types. The assay tests for high risk types (16, 18, 31, 33, 35, 39, 45, 51, 52, 56, 58, 59, 66, and 68). us Bianca Salcedo MD LAB_1 Final Resul t Performing Organization Address City/[facility]/ZIP Co de Phone Number [address] [address], [facility] [phone] * (ABNORMAL) Lipid Panel and Direct LDL (If Needed) (03/08/2023 4:11 PM CDT) Cholesterol 215(H) 0 - 199 mg/dL 03/08/2023 7:14 PM CDT [facility] Triglyceride 71 <=149 mg/dL 03/08/2023 7:14 PM CDT [facility] HDL Cholesterol 55 >=40 mg/dL 03/08/2023 7:14 PM CDT [facility] LDL, Calculated 146(H) <130 mg/dL 03/08/2023 7:14 PM CDT [facility] Non HDL Chol, Calculated 160(H) <=159 mg/dL 03/08/2023 7:14 PM CDT [facility] Cholesterol/HDL Ratio 3.9 03/08/2023 7:14 PM CDT [facility] Hours Fasting 12 03/08/2023 7:14 PM CDT [facility] () Blood Venipuncture / Unknown 03/08/2023 4:11 PM CDT 03/08/2023 4:11 PM CDT us Jason Chan MD LAB_1 Final Result [facility] [address] [place] [id number], [facility] [phone] [facility]) [address] [place] [address], [facility] [phone] * MM Mammogram Screening Bilat W 3D Capo W CAD (03/08/2023 1:53 PM CDT) Anatomical Region Laterality Modality Breast Bilateral Mammography Impressions 03/08/2023 3:06 PM CDT : ACR BI-RADS Category 1: Negative RECOMMENDATION: Follow Up Imaging in 12 months - Bilateral The results and recommendations of this examination will be communicated to the patient. Narrative 03/08/2023 3:06 PM CDT [facility] SCREENING BILAT W 3D CAPO W CAD performed on 03/08/23 Compared to: 12/10/2021 MM Mammogram Screening Bilat W 3D Capo W CAD, 11/12/2020 MM Mammogram Screening Bilat W 3D Capo W CAD, and 10/13/2018 MM Mammogram Screening Bilat W 3D Capo W CAD FINDINGS: Bilateral screening mammogram was performed with the assistance of Computer-Aided Detection and breast tomosynthesis. The breasts have scattered areas of fibroglandular density. There is no radiographic evidence of malignancy. Gabbie Cuevas MD RAD ARELY Final Resul t * CT Chest WO IV Cont Lung Screening (12/25/2020 1:53 PM STONEWORKER) Anatomical Region Laterality Modality Chest, Lung Computed Tomogra phy 12/25/2020 1:44 PM STONEWORKER Impressions 12/25/2020 2:48 PM STONEWORKER COMPARISON: 01/30/2019 TECHNIQUE: Images through the chest were obtained without contrast using a low dose lung screening technique. FINDINGS: Lungs appear hyperinflated. Bilateral apical pleural-parenchymal scarring and pleural thickening, right greater than left, is not significantly changed. Small stable areas of scarring at the lung bases are present. There are a few scattered calcified granulomas in the lungs. No focal lung infiltrate or pleural effusion. No lymphadenopathy. Moderate coronary artery calcification. Or other abnormality IMPRESSION: Stable bilateral apical and basilar areas of pleural parenchymal scarring. Scattered tiny calcified granulomas. ACR Lung-RADS Category 2: Benign appearance or behavior. Nodules with a very low likelihood of becoming a clinically active cancer due to size or lack of growth. Continue annual screening with low-dose chest CT in 12 months. 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 Gender: female Height :5' 8.2 Weight (lbs):130.4 lbs Race: Medical/Surgical History Menstrual periods:None Age of menopause:43 History of hip fractures in parents:No History of previous fractures occurring spontaneously, or a fracture as a result of a fall from a standing height or less:No If yes, indicated area: Glucocorticoids use:No Currently taking medication:None Have or had listed medical conditions:Premature menopause (<45 years) Dietary/Habit Alcohol 3units or more per day (on average):No Currently smoking:No Other pertinent history: Dual-X-ray Absorptiometry (DXA Results) AP spine (L1-L3 only, L4 was exlcuded) Left hip (neck) Left hip (total) Left forearm (1/3) BMD (gm/cm2) 0.768 0.734 0.764 T score -2.3 -1.0 -1.5 Z score -0.4 0.6 -0.1 %change from previous scan dated: N/A FRAX Score: 10 YR Risk Hip Fracture % 1.1% Typical threshold to start therapy in patients is a 10-year risk of hip fracture >3%. Clinician s judgment and/or patient preferences may indicate treatment for people with 10-year fracture probabilities above or below these levels. 10 YR Risk Major Osteoporotic Fracture % 7.3% Typical threshold to start therapy in patients is a 10-year risk of any osteoporotic fracture >20%.Clinicians judgment and/or patient preferences may indicate treatment for people with 10-year fracture probabilities above or below these levels. Diagnosis: *Osteopenia of left hip and spine Recommendations:. *Ensure appropriate calcium and vitamin D intake. *Use the FRAX score (above) and clinical judgment to guide further therapy. Comments: *Degenerative joint disease, compression fractures, or calcification artifacts may falsely increase bone mineral density. *Curvature of spine noted, which may cause inaccurate BMD values. *A discrepancy in T score is noted in the lumbar spine. (L4 excluded from analysis). DXA Scan Follow-up When do you repeat a DXA scan? This depends on a number of factors, including baseline DXA scan results and risk factors for accelerated bone loss. Timing of follow up scan should be individualized. These are general recommendations, but if a patient has significant risk factors for accelerated bone loss that are not noted on the DXA report, more aggressive follow up should be pursued 1. In women and men with low bone mass (T-score -2.00 to -2.49) at any site or who have risk factors for ongoing bone loss (eg, glucocorticoid use, hyperparathyroidism, aromatase inhibitors, etc.), consider a follow-up DXA approximately every one to two years as long as the risk factor persists 2. In women 65 years of age and older at baseline screening, with low bone mass (T-score -1.50 to -1.99) at any site, and with no risk factors for accelerated bone loss, consider a follow-up DXA in three to five years. For women under 65 years old and men, there is no consensus recommendation due to the paucity of data. 3. In women 65 years of age and older with normal or slightly low bone mass (T-score -1.01 to -1.49) at baseline measurement and no risk factors for accelerated bone loss, consider a follow-up DXA in 10 to 15 years. For women under 65 years old and men, there is no consensus recommendation due to the paucity of data. 4. In patients with osteoporosis or who s FRAX score suggests treatment should be initiated, consider a follow-up DXA in one to two years. 5. In patients who are currently on treatment for low bone mass, consider repeating DXA scan one to two years after initiating treatment and possibly less frequently thereafter. There are no recommendations for men <50 years old, or premenopausal women. The FRAX tool has been developed by WHO to evaluate fracture risk to patients. It is based on individual patient models that integrate the risks associated with clinical risk factors as well as bone mineral density (BMD) at the femoral neck. The FRAX algorithms give the 10-year probability of fracture. The output is a 10-year probability of hip fracture and the 10-year probability of a major osteoporotic fracture (clinical spine, forearm, hip or shoulder fracture). Consider FDA-approved medical therapies in postmenopausal women and men aged 50 years and older, based on the following: A hip or vertebral (clinical or morphometric) fracture. T-score ? -2.5 at the femoral neck or spine after appropriate evaluation to exclude secondary causes. Low bone mass(T-score -1.0 and -2.5 at the femoral neck or spine) and a 10-year probability of a hip fracture ? 3% or a 10-year probability of a major osteoporosis-related fracture ? 20% based on the [place]-adapted WHO algorithm. Clinicians judgment and/or patient preferences may indicate treatment for people with 10-year fracture probabilities above or below these levels. Gabbie Cuevas MD RAD DEXA Final Resul t * Hepatitis C Antibody, with Reflex (11/03/2018 1:56 PM STONEWORKER) Anti-HCV Negative (Non Reactive) [facility] Comment: Antibodies to HCV not detected. Does not exclude the possibility of exposure to HCV. 11/03/2018 1:56 PM STONEWORKER 11/03/2018 2:14 PM STONEWORKER Narrative [facility] - 11/03/2018 7:10 PM STONEWORKER Performed at [facility], [address] [place] [address] Gabbie Cuevas MD LAB_1 Final Resul t [place] [phone] from Last 3 Months or Most Recently Relevant to Health Maintenance Insurance MEDICARE MANAGED CARE BS [facility] [place] BL[place] MEDICARE MANAGED CARE [facility] [place] Advance Directives * Full Code (Latest Code Status on File) Date Activated Date Inactivated Comments 11/21/2023 5:39 PM 11/21/2023 9:49 PM * Full Code Date Activated Date Inactivated Comments 04/23/2013 9:54 PM 04/25/2013 4:43 PM * Full Code Date Activated Date Inactivated Comments 03/19/2008 3:30 PM 03/20/2008 6:38 PM Care Teams It Auditor Relationship Specialty Start Date End Date Gabbie Cuevas MD [address] [place] [address] PCP - General Family Practice 05/02/18
--- OUTSIDE RECORDS SUMMARY | 2025-07-24 19:55 | XMS_ITS | Encounter Summary ---
Author Organization [facility] Address [address], [place] [address] Care Team Providers Care Cartographic Technician Name Role Phone Gabbie Cuevas MD Primary Care Provider [phone] Encounter Details Date Type Department Care Team (Late st Contact Info) Description 03/14/2008 Correspondence None Inactive, Provider DME SIGNATURE OF DELIVERY Social History Tobacco Use Types Packs/Day Years Used Date Smoking Tobacco: Every Day Cigarettes 0.5 26 Alcohol Use Standard Drinks/Week Comments Yes 0 (1 standard drink = 0.6 oz pur e alcohol) rarely Comments No Sex and Gender Information Value Date Recorded Sex Assigned at Not on file Legal Sex Female 4:27 AM CDT Gender Identity Not on file Sexual Orientation Not on file 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
--- OUTSIDE RECORDS SUMMARY | 2025-07-24 19:55 | XMS_ITS | Encounter Summary ---
Author Organization [employer] Address [address] [place] [address] Care Team Providers Care Research Manager Name Role Phone Gabbie Cuevas MD Primary Care Provider [phone] Encounter Details Date Type Department Care Team (Latest Contact Info) Description 12/24/1999 Office Visit Teetee Nolan MD [address] [place] [address] Social History Tobacco Use Types Packs/Day Years Used Date Smoking Tobacco: Never Assessed Comments Unknown Sex and Gender Information Value Date Recorded Sex Assigned at Not on file Legal Sex Female 4:27 AM CDT Gender Identity Not on file Sexual Orientation Not on file documented as of this encounter Progress Notes * Teetee Nolan - 12/24/1999 12:00 AM CSTS: Judith is a 49-year old woman who smokes cigarettes but is interested in quitting and comes to clinic on December for a physical examination and pap smear. She has several questions today. She notes that will occasionally have what she describes as chest tightness . It is not associated with shortness of breath, diaphoresis, neck, arm or jaw pain. She denies any lightheadedness or fatigue with it. She cannot establish any particular pattern and states that it is fleeting in character. She would also like to review her TSH level which was drawn at her last visit on the December 18. She notes that her tetanus shot is due and she states that she has a history of high cholesterol which she would like to have checked today. Further review of systems, previous medical history and family history are reviewed. Please see the chart for further information. O: HEENT exam is within normal limits. The chest is clear to auscultation bilaterally without rales or wheezes. Cardiac exam finds a regular rate and rhythm without murmur, rub or gallop. Pulses are equal and of normal quality at the radial location. Abdomen is soft, nondistended, nontender. Bowel sounds are present. There is no hepatosplenomegaly or masses. Exam is compromised by mild obesity. Genitourinary exam finds a normal external perineum. There is mild to moderate amount of fluid in the vaginal vault that is white in coloration and without associated odor. A wet prep is sent. Pap smear is sent and is pending. The wet prep did come back negative today. Skin examination finds no new rash or lesions. Musculoskeletal exam is within normal limits. Her TSH level from the 18th was within normal limits. A cholesterol level is drawn today and is pending. A/P: In good overall health. She still has the discomfort in the neck that we discussed earlier and so I did refer her to ENT for further evaluation. I did discuss with Judith routine health maintenance cares and she will follow up in clinic if she has other questions or concerns. IN SUMMARY: PHYSICAL EXAM AND PAP SMEAR . cc: documented in this encounter Plan of Treatment Not on file documented as of this encounter Visit Diagnoses Not on filedocumented in this encounter Care Teams Research Manager Relationship Specialty Start Date End Date Gabbie Cuevas MD [address] [place] [address] PCP - General Family Practice 05/02/18 documented as of this encounter
--- OUTSIDE RECORDS SUMMARY | 2025-07-24 19:55 | XMS_ITS | Encounter Summary ---
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
--- OUTSIDE RECORDS SUMMARY | 2025-07-24 19:55 | XMS_ITS | Encounter Summary ---
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
--- OUTSIDE RECORDS SUMMARY | 2025-07-24 19:55 | XMS_ITS | Clinical Summary ---
Author Organization [facility] Address [address] [place] [address] Care Team Providers Care Garbage Pick Up Worker Name Role Phone Gabbie Cuevas Flor[place] Primary Care Provider [phone] Allergies Active Allergy Reactions Criticality Noted Date Comments Meperidine 12/15/2007 Doxycycline 12/15/2007 Nitroimidazoles 12/15/2007 Latex 12/02/2009 Metronidazole Hcl 12/02/2009 Nitrofurantoin 12/02/2009 Penicillins 12/02/2009 Quinine 12/15/2007 Sulfa (Sulfonamide Antibiotics) 12/2009 Thimerosal 12/15/2007 Varenicline 12/02/2009 Chantix Medications LEXAPRO 20 MG TAB take 1 tablet (20 mg) by oral route once daily 30 11 8 Active KLONOPIN 1 MG TAB One-to-two po qhs 60 5 9 Active aspirin chewable 81 mg chewable tablet Take 81 mg by mouth once daily with a meal. Active CALCIUM CARBONATE/VITAM IN D3 (CALCIUM + D ORAL) Take 1 tablet by mouth once daily. Active clonazepam (KLONOPIN) 1 mg tablet Take 1-1.5 tablets by mouth once daily. Active gatifloxacin (ZYMAR) 0.3 % ophthalmic drops 1 Drop. Instill 1 drop into operative eye 4 times a day starting 3 days before surgery Active Magnesium 200 mg Tab Take 200 mg by mouth once daily. Active multivitamin (MVI) tablet Take 1 tablet by mouth once daily. Active naproxen (NAPROSYN) 500 mg tablet Take by mouth. Take 1 by mouth 2 times a day as needed for pain. Take with food. Active oxybutynin XL (DITROPAN XL) 5 mg CR tablet 5 mg at bedtime. Active prednisolone acetate 1 % ophthalmic (ECONOPRED PLUS, PRED FORTE) 1 % suspension Place 1 Drop into the eye(s) 4 times daily. SHAKE WELL before use. 5 mL 0 0 Active bromfenac 0.09 % ophthalmic (XIBROM) 0.09 % ophthalmic solution Place 1 Drop into the eye(s) 2 times daily. 5 mL 0 0 Active Active Problems Problem Noted Date Diagnosed Date Obsessive-compulsive disorders 12/15/2007 Social History Tobacco Use Types Packs/Day Years Used Date Smoking Tobacco: Every Day Comments:/ ppd Alcohol Use Standard Drinks/Week Comments Yes 0 (1 standard drink = 0.6 oz pur e alcohol) social Comments Unknown Sex and Gender Information Value Date Recorded Sex Assigned at Not on file Legal Sex Female 5:45 AM SCHOOL SERVICES OFFICER Gender Identity Not on file Sexual Orientation Not on file Obstetrics History Last Filed Vital Signs Vital Sign Reading Time Taken Comments Blood Pressure 131/74 12/03/2009 10:45 AM SCHOOL SERVICES OFFICER Pulse 70 12/03/2009 10:45 AM SCHOOL SERVICES OFFICER Temperature 36.4 C (97.5 F) 12/03/2009 8:45 AM SCHOOL SERVICES OFFICER Respiratory Rate 16 12/03/2009 10:45 AM SCHOOL SERVICES OFFICER Oxygen Saturation 99% 12/03/2009 10:45 AM SCHOOL SERVICES OFFICER Inhaled Oxygen Concentration - - Weight 65.3 kg (144 lb) 12/02/2009 10:27 AM SCHOOL SERVICES OFFICER Height 174 cm (5' 8.5) 12/02/2009 10:27 AM SCHOOL SERVICES OFFICER Body Mass Index 21.57 12/02/2009 10:27 AM SCHOOL SERVICES OFFICER Plan of Treatment Health Maintenance Due Date Last Done Comments Tetanus booster 1962 Depression screening for age 12+ 1963 BMI (ht and wt on same day) for age 18+ 1969 Hepatitis C screening for ag e 18-79 1969 Colonoscopy through age 75 1996 Lipids for age 45-75 1996 Mammogram for age 45-75 1996 Pneumococcal series for age 50+ (1 of 1 - PCV) 2001 Zoster (shingles) series for age 50+ (1 of 2) 2001 DEXA/DXA scan for age 65+ 2016 Medicare Wellness for age 65+ 2016 COVID-19 vaccine series ( - season) 2025 Influenza Vaccine (#1) 2025 RSV vaccine for adults or (1 - 1-dose 75+ series) 2026 Hepatitis B series for 19+ Aged Out N o longer eligible based on patient's age to complete this topic Medical Devices Implanted Type Area Air Tank Assembler Device Identifier Shelf Expiration Date Model / Serial / Lot Log [id number] - Fabiola [id number] Lens Iol - 1 - Lens Sensar 18.0 [id number] 18.0 Implanted:Qty: 1 on 12/03/2009 at [facility] Left: Eye [employer] [id number] / [id number] / Insurance [employer] [place] BLUE MR PB ONLY [employer] [place] BL[employer] HB ONLY Advance Directives * Full Code (Latest Code Status on File) Date Activated Date Inactivated Comments 12/03/2009 8:43 AM 12/03/2009 12:44 PM Care Teams Garbage Pick Up Worker Relationship Specialty Start Date End Date Gabbie Cuevas [address] [place] [address] PCP - General 12/15/07
[2025-07-24 20:07] VITALS: BP 123/85; PULSE 104; RESP 18; TEMP 36.5; O2SAT 100; BMI 20.1
--- NOTE | 2025-07-24 20:12 | CRLHL7_ITS ---
For Patients: As a result of the Century Cures Act, medical imaging exams and procedure reports are released immediately into your electronic medical record. You may view this report before your referring provider. If you have questions, please contact your health care provider. Indication: Right ankle pain, fall Technique: Right ankle 3 views. Comparison: None. Findings: Bones: Tiny ossific density inferior to the lateral malleolus with osseous irregularity of the malleolar tip. No suspicious osseous lesion. Diffuse osseous demineralization. Joint spaces: The ankle mortise is congruent on nonweightbearing view. Soft tissues: Marked soft tissue swelling overlying the lateral malleolus. Impression: 1. Tiny ossific density inferior to the lateral malleolus with osseous irregularity of the malleolar tip is suspicious for an avulsion injury. 2. Marked soft tissue swelling overlying the lateral malleolus. Dictated by Wesley Raymond MD @ 07/24/2025 9:09:30 PM (Electronically Signed)
--- NOTE | 2025-07-24 20:13 | CRLHL7_ITS ---
For Patients: As a result of the Cures Act, medical imaging exams and procedure reports are released immediately into your electronic medical record. You may view this report before your referring provider. If you have questions, please contact your health care provider. INDICATION: Fall, left wrist pain, injury TECHNIQUE: Wrist radiograph 3 views left COMPARISON: None FINDINGS: Bone: No acute fractures or aggressive bone lesions are identified. Negative ulnar variance of 3.3 mm is noted. Moderate diffuse osteopenia is present. Joint: The radiocarpal, carpal, and carpometacarpal joints are unremarkable in appearance. Soft tissue: Unremarkable. No radiopaque foreign bodies are seen. IMPRESSION: 1. No acute osseous injuries are noted. Dictated by Hilario Hernandez MD @ 07/24/2025 9:10:38 PM Dictated by: Hilario Hernandez MD @ 07/24/2025 21:10:43 (Electronically Signed)
--- NOTE | 2025-07-24 20:50 | ED_ITS ---
HPI - General Adult General Chief complaint: Fall/Minor Trauma Stated complaint: R ankle, L wrist injury from fall Time Seen by Provider: 07/24/25 20:28 History of Present Illness HPI narrative: Fall this afternoon while sitting outside on her deck having popcorn and went to get more popcorn and shoe got caught on reiling on the deck. Pain and swelling in right ankle. No LOC and did not hit her head. No meds before coming in. She states she cannot take pain medications other than Tylenol. 75-year-old woman presenting to the emergency department following a mechanical fall. Apparently got her shoe stuck between a couple pieces of board on backing and fell. She has hurt her right ankle and her left wrist area. Did hit her head but struck it on a rocking chair on the way down. She denies any neck or back pain. There was no loss of consciousness. She is not feeling nauseated. Related Data Home Medications ?Medication ?Instructions ?Recorded ?Confirmed apixaban 5 mg tablet (Eliquis) mg 06/23/22 clonazepam 1 mg tablet mg 06/23/22 ezetimibe 10 mg tablet mg 06/23/22 gabapentin 300 mg capsule mg 06/23/22 metoprolol succinate 25 mg mg PO 06/23/22 tablet,extended release 24 hr venlafaxine 150 mg mg PO 06/23/22 capsule,extended release 24 hr Allergies Allergy/AdvReac Type Severity Reaction Status Date / Time Penicillins Allergy Mild Rash Verified 06/23/22 17:45 doxycycline AdvReac Intermediate Muscle Pain Verified 06/23/22 17:45 sulfas Allergy Unknown Uncoded 06/23/22 17:45 anti-inflammatories AdvReac Mild Muscle Pain Uncoded 06/23/22 17:45 Review of Systems Status of ROS: Reports: 6 or more systems reviewed and unremarkable except as noted in History and below [facility] Medical History Atrial fibrillation ?I48.91 - Unspecified atrial fibrillation (ICD-10) Depression ?F32.A - Depression, unspecified (ICD-10) Restless leg syndrome ?G25.81 - Restless legs syndrome (ICD-10) Hyperlipidemia ?E78.5 - Hyperlipidemia, unspecified (ICD-10) Surgical History History of cholecystectomy ?Z90.49 - Acquired absence of other specified parts of digestive tract (ICD- 10) History of hysterectomy ?Z90.710 - Acquired absence of both cervix and uterus (ICD-10) History of cataract surgery ?Z98.49 - Cataract extraction status, unspecified eye (ICD-10) History of knee replacement ?Z96.659 - Presence of unspecified artificial knee joint (ICD-10) Social History Smoking Status: Current every day smoker What tobacco products do you use: cigarettes Do you use any of these nicotine containing products: None Second hand tobacco smoke exposure: Yes How often do you have a drink containing alcohol: monthly or less How many standard drinks containing alcohol do you have on a typical day: 1 or 2 How often do you have six or more drinks on one occasion: Never AUDIT-C Alcohol total score: 1 Non-prescribed substance use: denies use Exam Narrative: Exam Narrative: Very pleasant. NAD. Examine her in the triage room in a busy emergency department. A little tremulous. Head is atraumatic. There is some prominence to the bony occipital area of which she says as palpates normally. Neck is supple nontender. Back nontender. Moving extremities without pain other than with some flexion of the wrist. Not discretely with snuffbox tenderness. Does have some tenderness though in the medial wrist but not exactly at the distal radius. Opens and closes her hand without difficulty. Lower extremities with compression stockings on. There is some mild to moderate lower extremity edema bilaterally. Examination of the right ankle shows a medial erosion of the skin that has dried up. This is the medial foot. This is chronic. She does not have any pain to palpation over the medial malleolus. She does say she swelled up pretty quickly over the lateral malleolus and does have pain over the inferior aspect of the lateral malleolus. Const: Vital Signs, click to edit/add: Vital Signs - 24 hr 07/24/25 20:07 Temperature 97.7 F Pulse Rate [Pulse Oximeter] 104 H Respiratory Rate 18 Blood Pressure [Ri ght Upper Arm] 123/85 Pulse Oximetry 100 Oxygen Delivery Me thod Room Air Documenting provider has reviewed patient's vital signs: yes Course Vital Signs Vital signs: Initial Vital Signs Temperature 97.7 F 07/24/25 20:07 Temperature Source Temporal Artery Scan 07/24/25 20:07 Pulse Rate 104 H 07/24/25 20:07 Respiratory Rate 18 07/24/25 20:07 Blood Pressure 123/85 07/24/25 20:07 Blood Pressure Mean 97 07/24/25 20:07 Blood Pressure Position Sitting 07/24/25 20:07 Pulse Oximetry 100 07/24/25 20:07 Oxygen Delivery Method Room Air 07/24/25 20:07 Vital Signs Temperature 97.7 F 07/24/25 20:07 Pulse Rate 104 H 07/24/25 20:07 Respiratory Rate 18 07/24/25 20:07 Blood Pressure 123/85 07/24/25 20:07 Pulse Oximetry 100 07/24/25 20:07 Oxygen Delivery Method Room Air 07/24/25 20:07 Temperature 97.7 F 07/24/25 20:07 Pulse Rate 104 H 07/24/25 20:07 Respiratory Rate 18 07/24/25 20:07 Blood Pressure 123/85 07/24/25 20:07 Pulse Oximetry 100 07/24/25 20:07 Oxygen Delivery Method Room Air 07/24/25 20:07 Medical Decision Making MDM Narrative Medical decision making narrative: X-rays of the left wrist and right ankle have been ordered by the time I am seeing Beverly. I do review these images independently. 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 Ulnar minus. The right ankle does show of flake/avulsion off the distal tip of the fibula. Mortise looks maintained. I do not think head or neck imaging is necessary. I think likely experiencing more of a wrist sprain at this point. I did offer a cinch lock wrist brace and applied it. She does note improvement in her symptoms. Also fitted then with a walking boot for the right ankle. See patient discharge plan for further discussion Probably good to rest your ankle, limiting ambulation over the next couple of days. Wear the walking boot when up and about over the next 2 weeks. I would follow up for reassessment at that time. It is okay to take the boot off at nig ht, while at rest. Ice your ankle and other sore areas as discussed a couple of times daily over the next few days. Elevate injured areas for comfort. Can take acetaminophen up to 1000 mg per dose. If your wrist isn't feeling better in 7-10 days I would follow up for re- evaluation. There is an avulsion fracture off the tip of the fibula in your ankle; this is also the area where you also seem to be the most sensitive. We treat this similar to an ankle sprain. I have also included some ankle rehabilitation exercises that you might consider starting in a few days. I would start more with just the mobility [facility] type exercises. Medical Records Medical records reviewed: Yes I reviewed the patient's medical records Discharge Plan Discharge Clinical Impression: Closed avulsion fracture of distal end of fibula, Ankle sprain, Left wrist sprain, Closed head injury Patient Disposition: Home w/ Parent or Adult Condition: Improved Additional Instructions: Probably good to rest your ankle, limiting ambulation over the next couple of days. Wear the walking boot when up and about over the next 2 weeks. I would follow up for reassessment at that time. It is okay to take the boot off at night, while at rest. Ice your ankle and other sore areas as discussed a couple of times daily over the next few days. Elevate injured areas for comfort. Can take acetaminophen up to 1000 mg per dose. If your wrist isn't feeling better in 7-10 days I would follow up for re- evaluation. There is an avulsion fracture off the tip of the fibula in your ankle; this is also the area where you also seem to be the most sensitive. We treat this sim ilar to an ankle sprain. I have also included some ankle rehabilitation exercises that you might consider starting in a few days. I would start more with just the mobility [facility] [facility] type exercises. Prescriptions: No Action clonazepam 1 mg tablet Patient Comments: TAKE 1 TO 1 AND 1/2 TABLETS BY MOUTH AT BEDTIME NEEDED FOR ANXIETY venlafaxine 150 mg capsule,extended release 24hr PO gabapentin 300 mg capsule Patient Comments: TAKE 1 CAPSULE BY MOUTH EVERY AFTERNOON AND 3 CAPSULES BY MOUTH EVERY EVENING metoprolol succinate 25 mg tablet extended release 24 hr PO ezetimibe 10 mg tablet Patient Comments: TAKE 1 TABLET BY MOUTH DAILY Eliquis 5 mg tablet Follow Up/Referrals: Gabbie Cuevas MD [Primary Care Provider, Family Practice] Stand Alone Forms: [facility]ist [facility] Info Instructions
== END 2025-07-24 21:55 | disposition home or self-care (01) ==
PROVIDERS: Emergency Provider Family Medicine; PCP Family Medicine
DX: S82.831A Other fracture of upper and lower end of right fibula, initial encounter for closed fracture (principal); S93.401A Sprain of unspecified ligament of right ankle, initial encounter; S09.90XA Unspecified injury of head, initial encounter; S63.502A Unspecified sprain of left wrist, initial encounter; W01.198A Fall on same level from slipping, tripping and stumbling with subsequent striking against other object, initial encounter; Y92.008 Other place in unspecified non-institutional (private) residence as the place of occurrence of the external cause
CPT/HCPCS: 73110; 73610; 99284